=== PATIENT | male | born 1965 | race Caucasian/White ===

== ENCOUNTER → 2022-11-21 11:55 | Outpatient (BNVA) | payer MEDICAID, SELFPAY | PROVIDERS: Referring Provider Nurse Practitioner; Visit Provider Student in an Organized Health Care Education/Training Program | DX: M25.811 Other specified joint disorders, right shoulder (principal); M25.812 Other specified joint disorders, left shoulder; M75.81 Other shoulder lesions, right shoulder; M75.82 Other shoulder lesions, left shoulder | CPT/HCPCS: 73030 ==

== ENCOUNTER 2023-04-03 06:00 | Outpatient (CLI) | payer MEDICAID, SELFPAY | END 2023-04-03 06:01 | disposition home or self-care (01) | LOC: SOT 04-04 07:55 | PROVIDERS: Visit Provider Student in an Organized Health Care Education/Training Program | DX: Z46.89 Encounter for fitting and adjustment of other specified devices (principal); M18.12 Unilateral primary osteoarthritis of first carpometacarpal joint, left hand | CPT/HCPCS: 97760; L3919 ==

== ENCOUNTER → 2023-04-03 13:01 | Outpatient (BNVA) | payer MEDICAID, SELFPAY | PROVIDERS: Visit Provider Student in an Organized Health Care Education/Training Program | DX: M18.12 Unilateral primary osteoarthritis of first carpometacarpal joint, left hand | CPT/HCPCS: 73130 ==

== ENCOUNTER 2023-12-25 10:33 | Outpatient (CLI) | payer OTHER, SELFPAY ==
--- NOTE | 2023-12-25 10:57 | XR_ITS ---
WS: [id number] Left hand, AP and lateral views, 12/25/2023 Clinical Data: Pain, Hx of arthritis Comparison: Left hand, 04/03/2023 Findings: No fractures or dislocations are seen. The soft tissues are unremarkable. The joint spaces are normal No periarticular demineralization or calcifications are seen. XR/XR hand LT 2V [id number] Impression: Negative left hand.
== END 2023-12-25 10:34 | disposition home or self-care (01) ==
LOC: RAD 10:36
PROVIDERS: PCP Nurse Practitioner Family; Visit Provider Dermatology
DX: Z02.71 Encounter for disability determination (principal); Z87.39 Personal history of other diseases of the musculoskeletal system and connective tissue
CPT/HCPCS: 73120

== ENCOUNTER → 2024-04-30 07:58 | Outpatient (BNVA) | payer MEDICAID, SELFPAY | PROVIDERS: PCP Nurse Practitioner Family; Visit Provider Student in an Organized Health Care Education/Training Program | DX: M18.12 Unilateral primary osteoarthritis of first carpometacarpal joint, left hand (principal) | CPT/HCPCS: 77002 ==

== ENCOUNTER → 2024-05-11 14:29 | Outpatient (BNVA) | payer MEDICAID, SELFPAY | PROVIDERS: PCP Nurse Practitioner Family; Visit Provider Nurse Practitioner Family | DX: S91.331A Puncture wound without foreign body, right foot, initial encounter (principal); X58.XXXA Exposure to other specified factors, initial encounter | CPT/HCPCS: 73630 ==

== ENCOUNTER 2024-07-27 11:47 | Outpatient (CLI) | payer MEDICAID, SELFPAY ==
--- NOTE | 2024-07-27 11:45 | MRR_ITS ---
PROCEDURE INFORMATION: Exam: MR Left Upper Extremity Joint Without Contrast; Wrist Exam date and time: 07/27/2024 11:58 AM Age: 58 years old Clinical indication: Pain; Wrist; Left; Additional info: [facility] joint pain left TECHNIQUE: Imaging protocol: Magnetic resonance imaging of the left upper extremity without contrast. Exam focused on the wrist. COMPARISON: CR XR hand LT 2V [id number] 12/25/2023 11:00 AM FINDINGS: Bones/joints: Radiocarpal and distal radioulnar joints are intact without evidence of fracture or subluxation. No significant joint effusion. Carpal rows are intact. No evidence of osteonecrosis or inflammatory arthropathy. Moderate-severe osteoarthritis of the thumb carpometacarpal joints with subchondral marrow edema and marginal osteophytes, particularly of the trapezium. Small associated joint effusion and chronic capsular sprain. No evidence of acute fracture. Mild pisotriquetral osteoarthritis. Scapholunate ligament: Grossly intact. Lunotriquetral ligament: Grossly intact. 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 If further detail is clinically warranted, consider correlation with follow-up outpatient MR arthrography. Flexor compartment tendons: Intact. Extensor compartment tendons: Intact. Mild extensor compartment II tenosynovitis. Very mild extensor carpi ulnaris tenosynovitis. Soft tissues: Mild radial sided soft tissue edema. No fluid collection or hematoma. MR/MR wrist LT wo con* [id number] IMPRESSION: 1. Moderate-severe osteoarthritis of the thumb carpometacarpal joint with marrow edema and chronic capsular sprain. 2. Mild extensor compartment II tenosynovitis. 3. 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 If further detail is clinically warranted, consider correlation with follow-up outpatient MR arthrography.
== END 2024-07-27 11:48 | disposition home or self-care (01) ==
LOC: RAD 11:47
PROVIDERS: PCP Nurse Practitioner Family; Visit Provider Student in an Organized Health Care Education/Training Program
DX: M18.12 Unilateral primary osteoarthritis of first carpometacarpal joint, left hand (principal); M24.132 Other articular cartilage disorders, left wrist; G56.03 Carpal tunnel syndrome, bilateral upper limbs
CPT/HCPCS: 73221